=== PATIENT | female | born 1945 | race Hispanic/Latino ===

== ENCOUNTER → 2025-03-16 | Day surgery (SDC) | payer MEDICARE ==
[2025-03-08 10:44] LABS: RED CELL DISTRIBUTION WIDTH 14.8 % (11.7-14.4)
[2025-03-08 10:45] LABS: BASOPHILS % 0.3 % (0.0-1.0); EOSINOPHILS % 2.5 % (0.0-6.0); LYMPHOCYTES % 21.5 % (18.0-39.1); MONOCYTES % 6.6 % (4.4-11.3); NEUTROPHILS % 68.6 % (38.7-80.0)
[~2025-03-16] MED LIST: ACETAMINOPHEN 1000 MG/100 ML 100 ML IV ONE; ALENDRONATE SOD70 MG PO; ASPIRIN 325 MG TAB PO SCH; CEFAZOLIN SODIUM 2 GM ONE; CELECOXIB 100 MG CAP PO SCH; DEXAMETHASONE SOD PHOS INJ 4 MG/ML SDV ONE; DOCUSATE SODIUM 100 MG CAP PO PRN; EPHEDRINE SULFATE INJ 50 MG/ML VIAL ONE; FENTANYL CITRATE/PF 100MCG/2 ML INJ ONE; HYDROCODONE/APAP 7.5MG-325MG 1 EA TAB PO PRN; HYDROMORPHONE 2MG/ML ONE; LACTATED RINGER'S 1,000 ML ONE; LIDOCAINE HCL 2% LOCAL INJ 5 ML SDV VIAL INJ ONE; METOCLOPRAMIDE HCL 10 MG/2ML VIAL ONE; ONDANSETRON HCL INJ 2MG/ML 2ML 2 MG/ML VIAL IV PRN; ONDANSETRON HCL INJ 2MG/ML 2ML 2 MG/ML VIAL ONE; PROPOFOL IV EMULSION 10 MG/ML 20 ML VIAL ONE; ROPIVACAINE/EPI/CLONIDINE/KET 50 ML SYRINGE INJ ONE
[2025-03-16 12:24] VITALS: TEMP 97.1
[2025-03-16] MEDS: ONDANSETRON HCL INJ 2MG/ML 2ML 2 MG/ML VIAL ONE (12:55)
[2025-03-16 14:00] VITALS: BP 145/80; PULSE 90; RESP 18; O2SAT 97
== END | disposition home or self-care (01) ==
LOC: OR 09:20
PROVIDERS: ATTEND Orthopaedic Surgery Adult Reconstructive Orthopaedic Surgery
DX: M17.12 Unilateral primary osteoarthritis, left knee (principal); K21.9 Gastro-esophageal reflux disease without esophagitis; F17.210 Nicotine dependence, cigarettes, uncomplicated; Z01.810 Encounter for preprocedural cardiovascular examination; Z01.812 Encounter for preprocedural laboratory examination; Z01.818 Encounter for other preprocedural examination; Z79.1 Long term (current) use of non-steroidal anti-inflammatories (NSAID); Z79.899 Other long term (current) drug therapy
CPT/HCPCS: 27447; 36415; 71046; 73560; 85025; 86850; 86900; 93005; 97116; 97161; C1713; C1776; J0131; J1100; J1171; J2003; J2405; J2704; J2765; J3010; J7121